=== PATIENT | male | born 1960 | race Caucasian/White ===

== ENCOUNTER 2024-04-24 05:02 | Observation (INO) ==
--- NOTE | 2024-03-26 13:53 | PAT Medication Instructions ---
Medication Instructions Date of Service March 26, 2024 Home Medications diphenhydramine HCl 25 mg tablet (Benadryl Allergy) 25 mg PO TID PRN chlorthalidone 50 mg tablet 50 mg PO BID meloxicam 15 mg tablet 15 mg PO QAM ASK your surgeon for instructions meloxicam 15 mg tablet 15 mg PO QAM DO NOT take the morning of surgery diphenhydramine HCl 25 mg tablet (Benadryl Allergy) 25 mg PO TID PRN chlorthalidone 50 mg tablet 50 mg PO BID Take evening before surgery diphenhydramine HCl 25 mg tablet (Benadryl Allergy) 25 mg PO TID PRN(if needed) chlorthalidone 50 mg tablet 50 mg PO BID Other Notes NOTHING TO EAT OR DRINK AFTER MIDNIGHT. If you have any questions please call us at [phone] or [phone] or [phone] or [phone]
--- NOTE | 2024-04-04 15:10 | Anesthesiology Consultation ---
Date of Service April 04, 2024 Assessment & Plan (1) Encounter for pre-operative examination: - Infectious disease screening: Per assessment on 04/04/24: No known recent infectious disease contacts or current infectious disease symptoms. - Abnormal CXR: Preop CXR done 04/04/24 noted "6 mm right upper lung nodular density which may reflect scarring. However, a chest CT is recommended to exclude a pulmonary nodule." Note written to PCP regarding preop CXR- Awaiting response (Dr. Cathie Gonzalez-Sundar/[place]). Patient otherwise acceptable risk for surgery. Chart Review Chart Review: Patient seen in Pre Admission Testing Teaching & Discussion Pre-Anesthesia Teaching/Discussion Notes: Instructed NPO after midnight before surgery,except medications with 15 cc of water. Medication instructions provided according to the PAT guidelines. History Surgery Operation Date: 04/24/24 12:05 Proposed Procedures p C4-C5 Artificial Disc Arthroplasty - Teddy Johnson MD Height/Weight Height: 5 ft 9 in Weight: 73.2 kg Allergies Allergy/AdvReac Type Severity Reaction Status Date / Time No Known Allergies Allergy Verified 03/21/24 14:57 Medications Home Medications Medication Instructions Recorded Confirmed Last Taken diphenhydramine HCl 25 mg tablet 25 mg PO TID PRN Allergies 09/30/23 03/21/24 Unknown (Benadryl Allergy) chlorthalidone 50 mg tablet 50 mg PO BID 03/21/24 03/21/24 Unknown meloxicam 15 mg tablet 15 mg PO QAM 03/21/24 03/21/24 Unknown Past Medical History Medical History (Updated 04/04/24 @ 16:01 by Barbara Esquivel) Arthritis Cataract Right Cervical radiculopathy Cervical spinal stenosis Gait disturbance HTN (hypertension) Hx of cancer of lung 2013 - no chemo/treatment, "resolved" before intervention/treatment done Paresthesia Bilateral Upper Extremities Exercise / Class Metabolic Activity III < 4 Walking/Shop/Light housework Past Family History Family History Mother , No information No problems noted. Father , age 60 of heart Heart disease Past Surgical History Surgical History Hx of cardiac cath 1990s- no stents S/P knee surgery Left Ulnar nerve entrapment at left ulnar groove Post transposition surgery - Left Past Anesthesia History No Hx of Anesthesia Complications and No Family Hx of Anesthesia Complications History of PONV No Hx of PONV and No Hx of Motion Sickness Social History Smoking Status: Current every day smoker Smoking cigarettes per day: 1 pack per day Do You Dip or Chew Tobacco: No Hx Alcohol Use: Yes Alcohol type: beer alcohol intake frequency: a few times a month Hx Substance Use: No substance use type: does not use Review of Systems Patient denies chest pain, shortness of breath, fever, chills, cough, wheezing, palpitations. Physical Exam Vital Signs BP 155/82 P 71 TEMP 98.3 SP02 96%RA RESP 16 Physical Decreased cervical extension range of motion. Full TMJ range of motion. TMD > 3.5 finger breaths Mallampati Score III Dentition: edentulous Lungs: clear throughout to auscultation Cardiac: regular rate and rhythm, I/ systolic murmur Spine: normal Carotid arteries: negative bruit Extremities: no LE edema Lab Results Anesthesia Preop Results Results Anesthesia Widget: WBC 8.56 K/ul (4.8-10.8) 04/04/24 Hgb 14.1 g/dl (14.0-18.0) 04/04/24 Hct 39.9 % (42.0-52.0) L 04/04/24 Plt 193 K/uL (130-400) 04/04/24 Na 136 mmol/L (136-145) 04/04/24 K 3.5 mmol/L (3.5-5.1) 04/04/24 Cl 99 mmol/L (98-107) 04/04/24 CO2 29 mmol/L (21-32) 04/04/24 BUN 23 mg/dl (6-23) 04/04/24 Creat 1.29 mg/dl (0.6-1.4) 04/04/24 Glucose Level 92 mg/dl (70-99(Fasting)) 04/04/24 PT 10.3 Seconds (9.0-12.0) 04/04/24 PTT 28 Seconds (21-31) 04/04/24 INR 0.9 (0.9-1.1) 04/04/24 Blood Type A Positive 04/04/24 Antibody Screen NEGATIVE 04/04/24 Testing Electrocardiogram Date: 04/04/24 NSR at 64bpm. iLBBB (QRS 108ms). NS STA. *EKG/Case reviewed with Dr. Gaytan- no further cardiac evaluation and/or testing needed prior to surgery from his perpsective* Chest X-Ray Date: 04/04/24 FINDINGS: Lung volumes are normal. There is no pneumothorax or pleural effusion. Cardiac size is normal. Mediastinal contours are normal. There is no evidence for pulmonary edema. Right upper lung interstitial thickening is noted. There may be underlying emphysema. 6 mm right upper lung nodular density is present. IMPRESSION: No acute cardiopulmonary findings. Right upper lung interstitial thickening with possible underlying emphysema. 6 mm right upper lung nodular density which may reflect scarring. However, a chest CT is recommended to excl ude a pulmonary nodule.
[2024-04-24] MEDS: ACETAMINOPHEN 500 MG TAB PO SCH (05:56)
[2024-04-24] MEDS: GABAPENTIN 600 MG DOSE PO SCH (05:56)
[2024-04-24] MEDS: LR 15ML/HR IV SCH (05:57)
[2024-04-24] MEDS ORDERED: PROMETHAZINE HCL 6.25 MG in SODIUM CHLORIDE 0.9% 50 ML IV PRN (06:42)
[2024-04-24] MEDS ORDERED: ATROPINE SULFATE 0.1 MG/ML 10ML SYR IV PRN (06:42)
[2024-04-24] MEDS ORDERED: ePHEDrine sulfate 50 MG/ML AMP IV PRN (06:42)
[2024-04-24] MEDS ORDERED: HYDROmorphone INJ 2 MG/ML SYR/VIAL IV PRN (06:42)
[2024-04-24] MEDS ORDERED: ONDANSETRON INJ 2 MG/ML 2 ML VIAL IV PRN ×2 (06:42→10:19)
[2024-04-24] MEDS ORDERED: MIDAZOLAM HCL 1 MG/ML 2ML VIAL ONE (06:59)
[2024-04-24] MEDS ORDERED: PROPOFOL IV EMULSION 10 MG/ML 20 ML VIAL IV ONE (06:59)
[2024-04-24] MEDS ORDERED: ONDANSETRON INJ 2 MG/ML 2 ML VIAL ONE (06:59)
[2024-04-24] MEDS ORDERED: ROCURONIUM BROMIDE 10 MG/ML 5 ML VIAL IV ONE (06:59)
[2024-04-24] MEDS ORDERED: fentaNYL citrate PF 100 MCG/2 ML VIAL ONE ×2 (06:59→08:16)
[2024-04-24] MEDS ORDERED: DEXAMETHASONE SOD INJ 4 MG/ML VIAL ONE (06:59)
--- NOTE | 2024-04-24 07:15 | History & Physical Bridge Note ---
Date of Service April 24, 2024 History & Physical Bridge Note I have examined the patient, reviewed the History & Physical and in the interval since the performance of the History & Physical I have noted the following changes of clinical significance: no changes noted
[2024-04-24] MEDS: LR 60ML/HR IV SCH (07:37)
[2024-04-24] MEDS ORDERED: KETAMINE HCL 10MG/ML SYR ONE (07:44)
[2024-04-24] MEDS: ceFAZolin 2000MG 2,000 MG/15 ML SYR IV SCH (08:00)
[2024-04-24] MEDS: VANCOMYCIN HCL 1000MG/20ML VIAL ONE (08:24)
[2024-04-24] MEDS: GELATIN SPONGE 12-7MM ONE (08:25)
[2024-04-24] MEDS: THROMBIN 5000 UNITS KIT ONE (08:25)
[2024-04-24] MEDS ORDERED: NEOSTIGMINE METHYLSULFATE 1 MG/ML 10ML VIAL ONE (09:59)
[2024-04-24] MEDS ORDERED: GLYCOPYRROLATE 0.2 MG/ML VIAL ONE (09:59)
[2024-04-24] MEDS ORDERED: ALUMINUM/MAGNESIUM SUSP 30 ML UDC PO PRN (10:19)
[2024-04-24] MEDS ORDERED: ACETAMINOPHEN 500 MG TAB PO PRN (10:19)
[2024-04-24] MEDS ORDERED: bisacodyL 10 MG SUPP PR PRN (10:19)
[2024-04-24] MEDS ORDERED: hydrOXYzine HCl 25 MG TAB PO PRN (10:19)
[2024-04-24] MEDS ORDERED: RACEPINEPHRINE 2.25% NEBU SOLN 0.5 ML VIAL INH PRN (10:19)
[2024-04-24] MEDS ORDERED: MAGNESIUM HYDROXIDE SUSP 30 ML UDC PO PRN (10:19)
[2024-04-24] MEDS ORDERED: diphenhydrAMINE Capsule 25 MG CAP PO PRN ×2 (10:19→12:09)
[2024-04-24] MEDS ORDERED: DO NOT ADMINISTER PNEUMOCOCCAL VACCINE PRN (10:19)
[2024-04-24] MEDS ORDERED: METOCLOPRAMIDE HCL INJ 5 MG/ML 2 ML VIAL IV PRN (10:19)
[2024-04-24] MEDS ORDERED: DO NOT ADMINISTER FLU VACCINE PRN (10:19)
[2024-04-24] MEDS ORDERED: NALOXONE HCL 0.4 MG/1 ML VIAL/CARP IV PRN (10:19)
[2024-04-24] MEDS ORDERED: HYDROmorphone INJ 0.5 MG/0.5 ML SYR IV PRN (10:19)
[2024-04-24] MEDS ORDERED: SOD PHOSPHATE/SOD BIPHOSPHATE ENEMA 132 ML BTL PR PRN (10:19)
[2024-04-24] MEDS ORDERED: ACETAMINOPHEN 1,000 MG/100 ML VIAL IV PRN (10:19)
[2024-04-24] MEDS ORDERED: dexAMETHasone 8 MG in SYRINGE 0 ML IV PRN (10:19)
[2024-04-24] MEDS ORDERED: PROMETHAZINE 12.5 MG/50.5 ML BAG IV PRN (10:19)
[2024-04-24] MEDS ORDERED: oxyCODONE/ACETAMINOPHEN 5mg/325mg TAB PO PRN (10:19)
[2024-04-24] MEDS ORDERED: ONDANSETRON 4 MG OD TAB PO PRN (10:19)
[2024-04-24] MEDS ORDERED: LORazepam 0.5 MG TAB PO PRN (10:19)
[2024-04-24] MEDS ORDERED: FAMOTIDINE 20 MG TAB PO PRN (10:19)
[2024-04-24] MEDS ORDERED: LORazepam 2 MG/1 ML VIAL IV PRN (10:19)
--- NOTE | 2024-04-24 10:19 | Post Operative Brief Note ---
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
--- NOTE | 2024-04-24 10:45 | Fluoroscopy Report ---
FL cervical 2-3V CLINICAL HISTORY: C4-5 DISC ARTHROPLASTY TECHNIQUE: 9 views were obtained with the C-arm in the OR with the above procedure. Total fluoroscopy time was 84.4 seconds. Radiation dose was 12.21 mGy. Comparison: Comparison is made to cervical spine radiographs 124 FINDINGS/IMPRESSION: Intraoperative images were obtained of C4-C5 disc arthroplasty. Please correlate with intraoperative fluoroscopy and operative report. ACT 112: Negative or not required by law. Electronically signed by: Edvin Johnston M.D. 04/24/2024 10:44 AM
[2024-04-24] MEDS: LABETALOL HCL IV 5 MG/ML 20ML IV PRN (10:51)
[2024-04-24] MEDS: fentaNYL citrate PF 100 MCG/2 ML VIAL IV PRN (10:56)
[2024-04-24] MEDS: LABETALOL HCL IV 5 MG/ML 20ML IV ONE (12:00)
[2024-04-24] MEDS: LACTATED RINGER'S 1,000 ML IV SCH (14:33)
--- NOTE | 2024-04-24 15:44 | Anesthesiology Progress Note ---
Date of Service April 24, 2024 Anesthesia Post Procedure Vital Signs Vital Signs: Temp Pulse Pulse Pulse Resp BP BP 04/24/24 14:51 61 16 04/24/24 14:42 36.4 C L 63 16 142/71 H 04/24/24 13:37 36.4 C L 61 16 125/71 04/24/24 13:24 63 16 04/24/24 12:36 36.4 C L 58 L 16 157/79 H 04/24/24 12:09 36.5 C 56 L 16 144/78 H 04/24/24 11:36 36.4 C L 54 L 18 148/97 H 04/24/24 11:28 36.2 C L 140/72 04/24/24 11:15 55 L 15 154/75 H 04/24/24 11:05 55 L 15 143/66 H 04/24/24 10:56 55 L 175/96 H 04/24/24 10:55 69 15 175/96 H 04/24/24 10:51 69 214/105 H 04/24/24 10:45 62 15 212/93 H 04/24/24 10:35 63 16 179/93 H 04/24/24 10:25 58 L 16 170/85 H 04/24/24 10:15 36.0 C L 59 L 18 140/69 04/24/24 05:45 36.6 C 62 20 192/84 H Pulse Ox O2 Del Method O2 Flow Rate 04/24/24 14:51 97 Room Air 04/24/24 14:42 98 Room Air 04/24/24 13:37 95 Room Air 04/24/24 13:24 98 Room Air 04/24/24 12:36 96 Room Air 04/24/24 12:09 95 Room Air 04/24/24 11:36 94 Room Air 04/24/24 11:28 04/24/24 11:15 95 Oxymask 2 04/24/24 11:05 99 Oxymask 5 04/24/24 10:56 04/24/24 10:55 100 Oxymask 5 04/24/24 10:51 04/24/24 10:45 99 Oxymask 5 04/24/24 10:35 93 Oxymask 5 04/24/24 10:25 99 Oxymask 5 04/24/24 10:15 98 Oxymask 5 04/24/24 05:45 97 Room Air Pain Intensity Neck: Pain Intensity: 10 Transfer of Care Handoff Completed per policy Notes Mental Status: alert / awake / arousable and participated in evaluation Patient Amnestic to Procedure: Yes Nausea / Vomiting: adequately controlled Pain: adequately controlled Airway Patency, RR, SpO2: stable & adequate BP & HR: stable & adequate Hydration State: stable & adequate Anesthetic Complications: no major complications apparent and Pt Satisfied with anesthetic care
[2024-04-24] MEDS: ceFAZolin 1000MG 1,000 MG/7.5 ML SYR IV SCH (16:33)
[2024-04-24] MEDS: CHLORTHALIDONE 25 MG TAB PO SCH (20:46)
[2024-04-24] MEDS: DOCUSATE SODIUM/SENNA 50/8.6MG TAB PO SCH (20:46)
[2024-04-25] MEDS: POLYETHYLENE (MIRALAX) 17 GM PACK PO SCH (06:10)
[2024-04-25 07:21] VITALS: BP 161/73; RESP 16; TEMP 97.5
--- NOTE | 2024-04-25 07:29 | Orthopedic Progress Note ---
Date of Service April 25, 2024 Subjective Pt seen and examined, doing well with improvement in hand symptoms. Minimal swallowing pain. Incision unremarkable. DC home today. Review of Systems All systems reviewed & are unremarkable except as noted in HPI & below. Physical Exam . Results & Data Results & Data Laboratory Results . Diagnostic Findings . PG Care Time/CCT Total # of Minutes Spent Total Time Spent with Patient: Total time spent is greater than 50% in coordination of care (as documented) at patient's floor/unit and/or counseling patient: Coding Level of Care Code 10491 Post Operative Follow-Up
--- NOTE | 2024-04-25 07:33 | Discharge Summary ---
Date of Service April 25, 2024 Admission HPI (Per Admitting) Cervical stenosis, surgery at C4-5 Principal Diagnosis Same as "Discharge Diagnosis" noted below under Discharge Instructions. Discharge Exam . Discharge Data Consultations 04/24/24 10:19 Consult Hospitalist Routine Procedures Performed Operation Date: 04/24/24 07:15 Actual Procedures p C4-C5 Artificial Disc Arthroplasty(Not Applicable) - Teddy Johnson MD Ordered Studies 04/24/24 07:15 FL cervical 2-3V Routine Hospital Course (1) Myelomalacia of cervical cord: Anterior cervical decompression, artificial disc replacement. PG Care Time/CCT Total # of Minutes Spent Total Time Spent with Patient: Total time spent is greater than 50% in coordination of care (as documented) at patient's floor/unit and/or counseling patient: Discharge Plan Discharge Items Patient Disposition: Home - Self-Care Reason For Visit: Cervical Spinal Stenosis, Cervical Radiculopathy a Discharge Diagnosis: same Activity: As commented below Lifting: No more than 10 pounds Bathing: May shower/bathe in 3 days Driving/Machine Use: Resume 3 days after discharge Weightbearing: Full weightbearing Non-emergency contact: Surgeon Call non-emergency contact if: your pain is worsening Follow-up/Referrals: Cathie Alan MD [Primary Care Provider] - Diet: Regular Addtl Attending Provider Instructions: Follow up in 2 weeks. Pending Studies at Discharge: No Stand-Alone Forms: My [employer], Smoking Cessation Medications and DC Order Prescriptions: Continued diphenhydramine HCl [Benadryl Allergy] 25 mg tablet 25 mg PO TID PRN (Reason: Allergies) chlorthalidone 50 mg tablet 50 mg PO BID Held meloxicam 15 mg tablet 15 mg PO QAM Hold Instructions: Resume on 04/27/24. Discharge Orders: Discharge Order (Routine); Ordered 04/25/24 Ordered By: Teddy Johnson Admission Data Admit Date/Time: 04/24/24 10:19 Attending Provider: Teddy Johnson Admit Provider: Teddy Johnson Primary Care Provider: Cathie Alan Other Providers: Radha Dial
--- NOTE | 2024-04-25 09:12 | Hospitalist Consultation ---
Date of Consultation April 25, 2024 Assessment & Plan (1) Cervical spinal stenosis: s/p C4-C5 Artificial Disc Arthroplasty 04/24 due to cervical spine stenosis and myelopathy - pre-op EKG NSR - pre-op CBC and BMP WNL - pain management, diet, and VTE ppx per orthopedic team - hemodynamically stable, non-hypoxic - patient doing well post-operatively, to discharge home 04/25 (2) Hypertension: Stable, elevated BP - given 2.5 L of fluids due to operation, likely contributing to elevated BP - stress of surgery also likely contributing to elevated BP - continue home chlorthalidone (3) Allergies: Stable - continue home diphenhydramine HCl PRN Plan VTE ppx: SCDs Diet: regular Dispo: discharge home today 04/25 Medically cleared for discharge from hospital medicine standpoint. Supervising Physician Co-Signing Physician Notes MINISTERIO Mendiola Note: I did not personally see or examine the patient today as he left before I could see him, but I verified all olivas points of MINISTERIO Arreguin's assessment and plan with the following exceptions/additions: None History of Present Illness Reason for Consultation: Medical management Requesting Physician: Teddy Johnson MD Attending Physician: Teddy Johnson MD History of Present Illness Patient is a 63 yo male with a pmhx of HTN, allergies, and back pain. Patient seen at bedside, postoperatively doing well. S/p spinal surgery yesterday. His only home medication is chlorthalidone for HTN. He has smoked a pack per day for the past 40 to 50 years, drinks alcohol socially. He tolerated breakfast well and has been OOB numerous times this morning without difficulty. No bowel movement since surgery. He stated his throat is sore after surgery but denies back pain. Patient denies dizziness, lightheadedness, dyspnea, chest pain, abdominal pain, nausea, vomiting, edema, numbness, tingling. He is planning for discharge today. Allergies Allergy/AdvReac Type Severity Reaction Status Date / Time No Known Allergies Allergy Verified 04/24/24 05:44 Home Medications Medication Instructions Recorded Confirmed Type diphenhydramine HCl 25 mg tablet 25 mg PO TID PRN Allergies 09/30/23 04/24/24 History (Benadryl Allergy) chlorthalidone 50 mg tablet 50 mg PO BID 03/21/24 04/24/24 History meloxicam 15 mg tablet 15 mg PO QAM 03/21/24 04/24/24 History Patient History Medical History Arthritis Hx of cancer of lung 2014 - no chemo/treatment, "resolved" before intervention/treatment done Cataract Right HTN (hypertension) Paresthesia Bilateral Upper Extremities Gait disturbance Cervical spinal stenosis Cervical radiculopathy Surgical History Hx of cardiac cath 1990s- no stents Ulnar nerve entrapment at left ulnar groove Post transposition surgery - Left S/P knee surgery Left Family History Mother , No information No problems noted. 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 Non-toxic appearing. HEENT- EOMI, mucous membranes moist. Hearing grossly intact. Bandage over left neck. Heart-normal S1 and S2. No murmurs, rubs or gallops. Lungs-clear bilaterally, no respiratory distress, no accessory muscle use. Abdomen-normal bowel sounds and soft. No ascites noted. Non-tender. Extremities- no clubbing, cyanosis, or edema. Rheumatologic-normal range of motion. Psychiatric-normal affect. Results & Data Results & Data Vital Signs (Past 12 Hours) Vital Signs Temp Pulse Resp BP Pulse Ox O2 Del Method 04/25/24 07:21 36.4 C L 60 16 161/73 H 97 Room Air 04/25/24 07:00 74 18 95 Room Air 04/25/24 06:57 36.5 C 58 L 14 162/69 H 98 Room Air 04/25/24 04:51 36.5 C 58 L 12 143/75 H 96 Room Air 04/25/24 03:55 58 L 16 97 Room Air 04/25/24 03:00 36.6 C 60 16 161/73 H 98 Room Air 04/25/24 00:42 36.5 C 57 L 14 148/66 H 99 Room Air 04/24/24 22:58 36.5 C 60 16 144/64 H 99 Room Air 04/24/24 22:48 55 L 18 99 Room Air PG Care Time/CCT Total # of Minutes Spent Total Time Spent with Patient: Total time spent is greater than 50% in coordination of care (as documented) at patient's floor/unit and/or counseling patient: Coding [place] [address] IN/OBS CONSULT LVL 3,45M Patient Type Established Medical Decision Making Low Complexity Diagnoses Cervical spinal stenosis M48.02 Hypertension I10 Allergies T78.40XA Time Spent (min) 40
[2024-04-25 11:01] VITALS: PULSE 73; O2SAT 97
--- NOTE | 2024-04-25 17:05 | Operative Report ---
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 C4-5 anterior cervical decompression, disc arthroplasty, Mobi-C 15 x 17 x 4.5 mm. (53643) Patient was taken the operating room after adequate anesthesia was carefully positioned supine on the OSI flattop table. The prep was performed, the positioned the patient, fluoroscopy was brought into marked for the location of the incision followed by prepping and draping. Made a transverse incision on the left side, and then advanced down along the medial border the sternocleidomastoid and onto the anterior aspect of the cervical spine. At that location, I then confirmed our location fluoroscopically followed by then mobilizing the tissues in this region, and insertion of 16 mm distractor pins. The retractors were then set, the microscope was brought in and I began the procedure with anterior annulotomy at C4-5. I moved to the disc space removing the disc material thoroughly and cartilage from the endplates, posteriorly the high-speed bur along with curettes and Kerrison punches were utilized to decom press the disc space. Once completed I went through trials selecting the size artificial disc replacement as noted, this was obtained and then inserted using fluoroscopic control with excellent position on AP and lateral. 5 inspection revealed no issues, final images were obtained after removing the distractor pins and placement of vancomycin powder and bone wax to the insertion holes. The operative site was closed with 3-0 Vicryl sutures followed by benzoin and Steri-Strips, sterile dressing was applied. Patient tolerated procedure well was taken recovery room in satisfactory condition. I attest to the content of the Intraoperative Record and any orders documented therein. Any exceptions are noted below.
== END 2024-04-25 11:43 | disposition home or self-care (01) ==
LOC: 3E 05:02 → ASU 05:02